=== PATIENT | female | born 1965 | race Two or more races ===

== ENCOUNTER 2016-11-05 15:40 | Emergency (ER) | payer SELFPAY ==
[~2016-11-05] VITALS: Ht 149.9 cm; Wt 64.6 kg
[2016-11-05 15:43] VITALS: BP 145/85
[2016-11-05] MEDS ORDERED: OXYMETAZOLINE NASAL SPRAY 0.05%, 15ML ONE (16:17)
[2016-11-05] MEDS ORDERED: BACITRACIN ZINC OINT 500U/GM, 0.9 GM ONE (16:17)
[2016-11-05] MEDS ORDERED: OXYMETAZOLINE NASAL SPRAY 0.05%, 15ML NAS ONE (16:30)
== END 2016-11-05 16:33 | disposition home or self-care (01) ==
LOC: ED 16:27
DX: R04.0 Epistaxis (principal); Z90.710 Acquired absence of both cervix and uterus
CPT/HCPCS: 99281

== ENCOUNTER 2018-03-21 12:52 | Emergency (ER) | payer OTHER ==
[~2018-03-21] VITALS: Ht 149.9 cm; Wt 65.0 kg
[2018-03-21] MEDS ORDERED: ALBU8.5H8 INH (13:09)
[2018-03-21] MEDS ORDERED: ACET325T14 PO (13:09)
--- NOTE | 2018-03-21 13:10 | NUR ---
PT BIBA, C/O STERNAL CP STARTING LAST NIGHT AT MIDNIGHT. PAIN WENT AWAY BUT RETURNED THIS AM. PT DENIES RADIATING PAIN, DENIES NAUSEA, DENIES SOB. PT DENIES PMH. EKG TAKEN BY THIS RN UPON ARRIVAL, REVIEWED BY BIENVENIDO KOWALSKI. PT PLACED ON ALL MONITORS. CALL LIGHT IN REACH. AWAITING MD JACK AND DISPO.
[2018-03-21] MEDS ORDERED: ASPIRIN 81 MG TABLET CHEW PO ONE (13:30)
[2018-03-21 13:46] LABS: BASOPHILS # (AUTO) 0.04 x10^3/uL (0-0.1); BASOPHILS % (AUTO) 1 % (0-1); EOSINOPHILS # (AUTO) 0.56 x10^3/uL (0-0.4); EOSINOPHILS % (AUTO) 8 % (1-7); LYMPHOCYTES # (AUTO) 1.94 x10^3/uL (1-3.4); LYMPHOCYTES % (AUTO) 29 % (22-44); MD NO; MEAN CORPUSCULAR HEMOGLOBIN 30.3 pg (27.0-34.8); MEAN CORPUSCULAR HGB CONC 34.4 g/dL (32.4-35.8); MEAN PLATELET VOLUME 7.9 fL (7.4-10.4); MONOCYTES # (AUTO) 0.57 x10^3/uL (0.2-0.8); MONOCYTES % (AUTO) 9 % (2-9); NEUTROPHILS # (AUTO) 3.54 x10^3/uL (1.8-6.8); NEUTROPHILS % (AUTO) 53 % (42-75); PLATELET COUNT 267 x10^3/uL (130-400); RED CELL DISTRIBUTION WIDTH 13.4 % (9.6-15.2)
[2018-03-21 13:59] LABS: ALBUMIN 3.9 g/dL (3.4-5.0); ANION GAP 8 mmol/L (5-15); CALCIUM 9.6 mg/dL (8.5-10.1); CHLORIDE 110 mmol/L (98-107); CREATININE 0.52 mg/dL (0.55-1.02)
[2018-03-21 14:02] LABS: TROPONIN I < 0.015 ng/mL (0.000-0.045)
[2018-03-21] MEDS ORDERED: ASPIRIN 81 MG TABLET CHEW ONE (14:30)
--- NOTE | 2018-03-21 14:35 | NUR ---
PT MEDICATED PER EMAR, TOLERATED WELL. PT A&O, RESPS EVEN AND UNLABORED. NO COMPLAINT AT THIS TIME.
--- NOTE | 2018-03-21 14:40 | NUR ---
TASK RN: DC EDUCATION PROVIDED, PT DEMONSTRATES UNDERSTANDING. PT AMBULATED STEADILY TO DC WITH RN.
[2018-03-21 14:41] VITALS: BP 134/77
== END 2018-03-21 14:42 | disposition home or self-care (01) ==
LOC: ED 14:06
DX: R07.89 Other chest pain (principal); Z90.710 Acquired absence of both cervix and uterus
CPT/HCPCS: 36415; 71045; 80048; 82040; 83605; 84484; 85025; 93005; 99284

== ENCOUNTER 2019-07-15 22:56 | Emergency (ER) | payer OTHER ==
[~2019-07-15] VITALS: Ht 149.9 cm; Wt 59.0 kg
[~2019-07-15 22:56] MED LIST: ACET325T14 PO; ALBU8.5H8 INH
[2019-07-15 23:29] LABS: BASOPHILS # (AUTO) 0.04 x10^3/uL (0-0.1); BASOPHILS % (AUTO) 0 % (0-1); EOSINOPHILS # (AUTO) 0.39 x10^3/uL (0-0.4); EOSINOPHILS % (AUTO) 4 % (1-7); LYMPHOCYTES # (AUTO) 2.59 x10^3/uL (1-3.4); LYMPHOCYTES % (AUTO) 24 % (22-44); MD NO; MEAN CORPUSCULAR HGB CONC 34.2 g/dL (32.4-35.8); MEAN CORPUSCULAR VOLUME 87.8 fL (80-100); MEAN PLATELET VOLUME 8.2 fL (7.4-10.4); MONOCYTES % (AUTO) 6 % (2-9); NEUTROPHILS # (AUTO) 7.03 x10^3/uL (1.8-6.8); NEUTROPHILS % (AUTO) 66 % (42-75); PLATELET COUNT 268 x10^3/uL (130-400); RED BLOOD COUNT 5.22 x10^6/uL (3.82-5.3); RED CELL DISTRIBUTION WIDTH 12.7 % (9.6-15.2)
[2019-07-15 23:42] LABS: ANION GAP 10 mmol/L (5-15); CALCIUM 9.3 mg/dL (8.5-10.1); CHLORIDE 108 mmol/L (98-107); CREATININE 0.64 mg/dL (0.55-1.02)
[2019-07-15 23:46] LABS: FREE T4 (FREE THYROXINE) 1.46 ng/dL (0.76-1.46); TROPONIN I < 0.015 ng/mL (0.000-0.045)
--- NOTE | 2019-07-15 23:48 | NUR ---
PT RESTING AND NSR ON CILNICAL SCIENTIST. AWAITING LAB RESULTS.
[2019-07-16 00:22] VITALS: BP 148/85
== END 2019-07-16 00:24 | disposition home or self-care (01) ==
LOC: ED 07-16
DX: R00.2 Palpitations (principal); R06.02 Shortness of breath; I51.7 Cardiomegaly
CPT/HCPCS: 36415; 80048; 82040; 84439; 84443; 84481; 84484; 85025; 93005; 99284

== ENCOUNTER → 2019-08-15 | Outpatient (CLI) | payer OTHER | END | disposition home or self-care (01) | LOC: CFH 07:25 | PROVIDERS: ATTEND Internal Medicine Cardiovascular Disease | DX: I08.8 Other rheumatic multiple valve diseases (principal) | CPT/HCPCS: 93306 ==